=== PATIENT | male | born 1980 | race Caucasian/White ===

== ENCOUNTER → 2022-10-04 | Outpatient (CLI) | payer BC | END | disposition home or self-care (01) | LOC: RADXRMAIN 10:03 | PROVIDERS: ATTEND Internal Medicine | DX: Z53.9 Procedure and treatment not carried out, unspecified reason (principal) ==

== ENCOUNTER → 2023-12-18 | Outpatient (CLI) | payer BC ==
--- NOTE | 2023-12-18 16:45 | XR ---
EXAMINATION TYPE: XR foot limited LT DATE OF EXAM: 12/18/2023 4:20 PM CLINICAL INDICATION:Male, 43 years old with history of R52 PAIN; PH[facility] COMPARISON: TECHNIQUE: XR foot limited LT examined in the AP, oblique, and lateral projections. FINDINGS: No evidence of any acute osseous pathology. No evidence of soft tissue swelling. Mild periarticular osteophytes, especially hindfoot/midfoot joints. IMPRESSION: No evidence of acute fracture.
== END | disposition home or self-care (01) ==
LOC: RADXRMAIN 16:05
PROVIDERS: ATTEND Family Medicine
DX: M79.672 Pain in left foot (principal)